=== PATIENT | male | born 1980 | race Caucasian/White ===

== ENCOUNTER 2019-01-14 11:07 | Emergency (ER) | payer SELFPAY ==
[~2019-01-14] VITALS: Ht 175.3 cm; Wt 81.6 kg
[2019-01-14 11:16] VITALS: Ht 175.3 cm; Wt 81.6 kg
[2019-01-14 12:31] LABS: CALCIUM 8.6 mg/dL (8.5-10.1); CARBON DIOXIDE 31.3 mmol/L (21-32); CHLORIDE SERUM 105 mmol/L (98-107); CREATININE SERUM 0.6 mg/dL (0.7-1.3); GFR1 > 60 mL/min; GLUCOSE SERUM 171 mg/dL (74-106); POTASSIUM SERUM 3.7 mmol/L (3.5-5.1); SODIUM SERUM 144 mmol/L (136-145)
[2019-01-14 12:34] LABS: BASOPHIL % 0.6 % (0-2); PLATELET COUNT 205 x10^3mcL (130-400); RED CELL DISTRIBUTION WIDTH 13.6 % (11.5-14.5)
[2019-01-14 12:35] LABS: ALBUMIN 3.5 g/dL (3.4-5.0); ALKALINE PHOSPHATASE 52 U/L (46-116); ALT/SGPT 48 U/L (16-63); AST/SGOT 35 U/L (15-37); BILIRUBIN TOTAL 0.3 mg/dL (0.20-1.00); TOTAL PROTEIN, SERUM 6.9 g/dL (6.4-8.2)
[2019-01-14 12:37] LABS: CHOLESTEROL 203 mg/dL (<200)
[2019-01-14 14:16] VITALS: BP 100/62
== END 2019-01-14 14:16 | disposition home or self-care (01) ==
LOC: ED 11:07
PROVIDERS: Specialist
DX: F10.129 Alcohol abuse with intoxication, unspecified (principal); F29 Unspecified psychosis not due to a substance or known physiological condition; E11.9 Type 2 diabetes mellitus without complications; Y90.1 Blood alcohol level of 20-39 mg/100 ml
CPT/HCPCS: G0480; J1630; J7030; Q0092